=== PATIENT | female | born 1980 | race Caucasian/White ===

== ENCOUNTER 2017-06-22 10:15 | Observation (INO) | payer OTHER ==
[~2017-06-22] VITALS: Ht 170.2 cm; Wt 135.2 kg
[2017-06-22] MEDS ORDERED: TERBUTALINE SULFATE 2.5 MG TABLET PO PRN (11:00)
== END 2017-06-22 11:15 | disposition home or self-care (01) ==
LOC: SPU 10:15
PROVIDERS: ADMIT Obstetrics & Gynecology; ATTEND Obstetrics & Gynecology
DX: O42.92 Full-term premature rupture of membranes, unspecified as to length of time between rupture and onset of labor (principal); Z3A.40 40 weeks gestation of pregnancy
CPT/HCPCS: 81002; G0378

== ENCOUNTER 2017-06-25 05:33 | Inpatient (IN) | payer OTHER ==
[~2017-06-25] VITALS: Ht 167.6 cm; Wt 135.2 kg
[2017-06-25] MEDS ORDERED: LR 1,000 ML IV ONE ×2 (05:41→08:59)
[2017-06-25] MEDS ORDERED: CEFAZOLIN 2 GM IVPB PREMIX 50 ML IV ONE (05:45)
[2017-06-25] MEDS ORDERED: MORPHINE SULFATE 10MG/10ML PF AMP EP ONE (07:38)
[2017-06-25] MEDS ORDERED: METOCLOPRAMIDE HCL 10 MG/2 ML VIAL IVP ONE (07:38)
[2017-06-25] MEDS ORDERED: DEXAMETHASONE SOD PHOSPHATE 4 MG/ML VIAL IVP ONE (07:38)
[2017-06-25] MEDS ORDERED: SEVOFLURANE 15 MIN GAS INH ONE (07:38)
[2017-06-25] MEDS ORDERED: fentaNYL CITRATE/PF 100 MCG/2 ML AMP IVP ONE (07:38)
[2017-06-25] MEDS ORDERED: BUPIVACAINE /PF 0.75% 10 ML VIAL INJ ONE (07:38)
[2017-06-25] MEDS ORDERED: fentaNYL CITRATE/PF 100 MCG/2 ML AMP IVP PRN (09:00)
[2017-06-25] MEDS ORDERED: ePHEDrine sulfate 50 MG/ML VIAL IVP PRN (09:00)
[2017-06-25] MEDS ORDERED: NALOXONE HCL 0.4 MG/ML AMP (NARCAN) IVP PRN (09:00)
[2017-06-25] MEDS ORDERED: KETOROLAC TROMETHAMINE 30 MG VIAL IM PRN (09:00)
[2017-06-25] MEDS ORDERED: DIPHENHYDRAMINE INJ 50 MG/ML VIAL IVP PRN (09:00)
[2017-06-25] MEDS ORDERED: ONDANSETRON HCL 4 MG/2 ML VIAL IVP PRN ×2 (09:00)
[2017-06-25] MEDS ORDERED: NALBUPHINE HCL 10 MG/ML AMP IVP PRN (09:00)
[2017-06-25] MEDS ORDERED: OXYTOCIN/NORMAL SALINE 1,000 ML IV ONE ×2 (09:53→10:03)
[2017-06-25] MEDS ORDERED: LR 1,000 ML IV SCH (10:03)
[2017-06-25] MEDS ORDERED: LANOLIN 7 GM OINT. TP PRN (10:15)
[2017-06-25] MEDS ORDERED: MEASLES,MUMPS&RUBELLA VACC/PF 12500 UNIT/0.5 ML VIAL SUBQ PRN (10:15)
[2017-06-25] MEDS ORDERED: SIMETHICONE 80 MG TAB.CHEW PO PRN (10:15)
[2017-06-25] MEDS ORDERED: BISACODYL 10 MG/SUPPOSITORY RC PRN (10:15)
[2017-06-25] MEDS ORDERED: DOCUSATE SODIUM 100 MG CAPSULE PO PRN (10:15)
[2017-06-25] MEDS ORDERED: RHO(D) IMMUNE GLOBULIN/MALTOSE 1500 UNITS/1.3 ML (WINHRO) IM PRN (10:15)
[2017-06-25] MEDS ORDERED: SENNOSIDES/DOCUSATE SODIUM 1 TAB TABLET(SENOKOT-S) PO PRN (10:15)
[2017-06-25] MEDS ORDERED: ANUSOL 1 EA SUPP.RECT (PREPARATION H) RC PRN (10:15)
[2017-06-25] MEDS ORDERED: DIPHENHYDRAMINE INJ 50 MG/ML VIAL ONE (10:53)
[2017-06-25 14:35] VITALS: BP_SYST 95
[2017-06-25] MEDS ORDERED: FLU VACC QS 2017-18(36MOS+)/PF 0.5 ML/SYR SYRINGE I.M. PRN (14:45)
[2017-06-25] MEDS ORDERED: TEMAZEPAM 15 MG CAPSULE PO PRN (21:00)
[2017-06-26 07:51] LABS: HEMATOCRIT 33.7 % (36-48); HEMOGLOBIN 11.2 g/dL (12.0-16.0)
[2017-06-26] MEDS: OXYCODONE/ACETAMINOPHEN 5-325 TABLET PO PRN ×2 (10:28→18:09)
[2017-06-26] MEDS: IBUPROFEN 800 MG TABLET PO PRN ×3 (17:30→23:29)
[2017-06-27] MEDS: OXYCODONE/ACETAMINOPHEN 5-325 TABLET PO PRN ×3 (02:45→12:11)
[2017-06-27] MEDS: IBUPROFEN 800 MG TABLET PO PRN ×2 (06:38→12:11)
== END 2017-06-27 13:30 | disposition home or self-care (01) | DRG 766 ==
LOC: SPU 05:33
PROVIDERS: ADMIT Obstetrics & Gynecology; ATTEND Obstetrics & Gynecology
PROC: 0UB70ZZ Excision of Bilateral Fallopian Tubes, Open Approach (ICD-10-PCS; 2017-06-25)
PROC: 10D00Z1 Extraction of Products of Conception, Low, Open Approach (ICD-10-PCS; principal; 2017-06-25 07:30)
DX: O34.211 Maternal care for low transverse scar from previous cesarean delivery (principal); O24.429 Gestational diabetes mellitus in childbirth, unspecified control; O99.824 Streptococcus B carrier state complicating childbirth; Z30.2 Encounter for sterilization; Z37.0 Single live birth; Z3A.39 39 weeks gestation of pregnancy
CPT/HCPCS: 36415; 82962; 85018-TC; 86886; 86900; 86901; 88302; 94760; J0690; J1100; J1200; J2274; J2590; J2765; J3010; J3490

== ENCOUNTER 2017-07-01 05:11 | Emergency (ER) | payer OTHER ==
[~2017-07-01] VITALS: Ht 167.6 cm; Wt 131.5 kg
[2017-07-01 05:15] VITALS: BP_SYST 121
[2017-07-01] MEDS ORDERED: PREDNISONE 20 MG TABLET PO ONE (05:30)
[2017-07-01] MEDS ORDERED: DIPHENHYDRAMINE HCL 50 MG CAPSULE PO ONE (05:30)
[2017-07-01 07:03] VITALS: BP_SYST 118
== END 2017-07-01 07:03 | disposition home or self-care (01) ==
LOC: SED 05:11
DX: O86.89 Other specified puerperal infections (principal); L23.9 Allergic contact dermatitis, unspecified cause
CPT/HCPCS: 99283; J7512; Q0163